=== PATIENT | female | born 1995 | race African-American/Black ===

== ENCOUNTER 2023-02-01 10:19 | Emergency (ER) | payer BC, OTHER ==
[~2023-02-01] VITALS: Ht 154.9 cm; Wt 72.5 kg
[2023-02-01] MEDS ORDERED: PENI500T2 PO (13:02)
[2023-02-01 13:03] VITALS: BP 111/66
[2023-02-01] MEDS ORDERED: BENZ20GE MT (13:05)
== END 2023-02-01 13:30 | disposition home or self-care (01) ==
LOC: ER 10:19
DX: J02.9 Acute pharyngitis, unspecified (principal); K12.0 Recurrent oral aphthae; Z88.0 Allergy status to penicillin; Z88.6 Allergy status to analgesic agent
CPT/HCPCS: 87070; 87880